=== PATIENT | male | born 1995 | race Asian ===

== ENCOUNTER 2018-03-15 03:18 | Emergency (ER) | payer OTHER ==
--- NOTE | 2018-03-15 04:06 | ED ---
Substance Abuse/Use - HPI Summary HPI Summary: This patient is a 22 year old M brought in as 22.09 by Lia Frederick presenting to ED with a chief complaint of alcohol intoxication STORE [employer]. He reports he is an alum of [employer] and is in town for an alumni event. He is staying at the [facility] on [facility] while in town and is originally from [place]. He was with some friends at a house democrat tonight. No substances were involved. He has alcohol at most once a week. Per the police, they were called to [employer], and found him wandering around, not being confrontational though. He admitted to going to [employer] from [employer] The patient rates the pain 0/10 in severity. Symptoms aggravated by nothing. Symptoms alleviated by nothing. - History Of Current Complaint Chief Complaint: EDSubstanceAbuse Stated Complaint: 2208 Time Seen by Provider: 03/15/18 03:30 Hx Obtained From: Patient Onset/Duration of Drug/ETOH Abuse: Minutes Timing Of Abuse: Binge Use Severity Currently: None Aggravating Factor(s): Nothing Alleviating Factor(s): Nothing - Allergies/Home Medications Allergies/Adverse Reactions: Allergies Allergy/AdvReac Type Severity Reaction Status Date / Time pollen extracts Allergy Eyes Verified 03/15/18 03:48 Itchy/Swollen/Red/Watery Home Medications: Home Medications NK [No Home Medications Reported] 03/15/18 [History Confirmed 03/15/18] PMH/Surg Hx/FS Hx/Imm Hx Endocrine/Hematology History: Denies: Hx Diabetes Cardiovascular History: Denies: Hx Hypertension Infectious Disease History: No Infectious Disease History: Reports: Traveled Outside the [place] in Last 30 Days - [place] - Family History Known Family History: Negative: Blood Disorder - Social History Alcohol Use: ETOH intoxication Substance Use Type: Reports: None Smoking Status (MU): Never Smoked Tobacco Review of Systems Positive: Other - alcohol intoxication. Negative: Fever Positive: Other - not confrontational All Other Systems Reviewed And Are Negative: Yes Physical Exam - Summary Physical Exam Summary: VITAL SIGNS: Reviewed. GENERAL: Patient is a well-developed and nourished MALE who is lying comfortable in the stretcher. Patient is not in any acute respiratory distress. HEAD AND FACE: No signs of trauma. No ecchymosis, hematomas or skull depressions. No sinus tenderness. EYES: PERRLA, EOMI x 2, No injected conjunctiva, no nystagmus. EARS: Hearing grossly intact. Ear canals and tympanic membranes are within normal limits. MOUTH: Oropharynx within normal limits. Alcohol in breath. NECK: Supple, trachea is midline, no adenopathy, no JVD, no carotid bruit, no c- spine tenderness, neck with full ROM. CHEST: Symmetric, no tenderness at palpation LUNGS: Clear to auscultation bilaterally. No wheezing or crackles. CVS: Regular rate and rhythm, S1 and S2 present, no murmurs or gallops appreciated. ABDOMEN: Soft, non-tender. No signs of distention. No rebound no guarding, and no masses palpated. Bowel sounds are normal. EXTREMITIES: FROM in all major joints, no edema, no cyanosis or clubbing. NEURO: Alert and oriented x 3. No acute neurological deficits. Speech is normal and follows commands. Cooperative and slowly responds to questions. SKIN: Dry and warm Triage Information Reviewed: Yes Vital Signs On Initial Exam: Initial Vitals Temp Pulse Resp BP Pulse Ox 98.8 F 112 20 134/82 97 03/15/18 03:24 03/15/18 03:24 03/15/18 03:24 03/15/18 03:24 03/15/18 03:24 Vital Signs Reviewed: Yes Diagnostics - Vital Signs Vital Signs Temp Pulse Resp BP Pulse Ox 03/15/18 03:46 119 100 03/15/18 03:45 107 134/96 99 03/15/18 03:24 98.8 F 112 20 134/82 97 - Laboratory Lab Statement: Any lab studies that have been ordered have been reviewed, and results considered in the medical decision making process. Re-Evaluation - Re-Evaluation First Eval Re-Evaluation Time: 05:59 Comment: Patient is talkative and alert. Discussed plan for discharge. Course/Dx - Course Assessment/Plan: This patient is a 22 year old M brought in as 22.09 by [employer] Frederick presenting to ED with a chief complaint of alcohol intoxication STORE [employer]. This patient will be discharged with dx of alcohol use. Patient understands and agrees with this plan. - Diagnoses Differential Diagnosis/HQI/PQRI: Positive: Other - alcohol use Provider Diagnoses: Alcohol use Discharge - Sign-Out/Discharge Documenting (check all that apply): Patient Departure - discharge Patient Received Moderate/Deep Sedation with Procedure: No - Discharge Plan Condition: Stable Disposition: HOME Patient Education Materials: At-Risk Alcohol Use (ED) Referrals: [facility] [Outside] Additional Instructions: RETURN TO THE EMERGENCY DEPARTMENT FOR CHANGING OR WORSENING SYMPTOMS. FOLLOW UP WITH PCP IN 1-2 DAYS. - Attestation Statements Document Initiated by Scribe: Yes Documenting Scribe: Oscar Roe Provider For Whom Scribe is Documenting (Include Credential): Andrew Chandler MD Scribe Attestation: Oscar Mon, scribed for Andrew Chandler MD on 03/15/18 at 0557. Status of Scribe Document: Ready
[2018-03-15 06:18] VITALS: BP 123/73
== END 2018-03-15 06:10 | disposition home or self-care (01) ==
LOC: ED 03:18
DX: F10.10 Alcohol abuse, uncomplicated (principal); Y90.1 Blood alcohol level of 20-39 mg/100 ml
CPT/HCPCS: 99283